=== PATIENT | male | born 1965 | race Caucasian/White ===

== ENCOUNTER 2023-06-22 22:17 | Emergency (ER) | payer OTHER, SELFPAY ==
--- NOTE | ~2023-06-22 | CT_ITS ---
Noncontrast CT scan of the cervical spine Technique: Multiple contiguous axial [address] images of the cervical spine were obtained and rec onstructed in 2D sagittal and coronal planes on the acquisition scanner. Dose reduction technique was used on this scan by utilizing automated exposure control, adjustment of the mA and/or kV according to patient size. The dose-length product (DLP) was 527.77 mGy-cm. Clinical History: Pain Findings: No fractures or dislocations. There is moderate degenerative disc change throughout the ce rvical spine. There is straightening of the normal cervical lordosis. There is bilateral mild neural foraminal narrowing at C2-C3 with mild facet arthropathy, right worse than left. There is bilateral n eural foraminal narrowing at C3-C4, left worse than right. There is right neural foraminal narrowing at C5-C6. There is left neural foraminal narrowing at C6-C7. No prevertebral soft tissue swelling. Impression: No fracture or subluxation of the cervical spine. Degenerative change, as detailed above. Reviewed, dictated and finalized at [facility]. Impression: No fracture or subluxation of the cervical spine. Degenerative change, as detailed above.
--- NOTE | ~2023-06-22 | XR_ITS ---
AP and lateral views of the right tibia/fibula Clinical History: Trauma Findings: No acute fracture or dislocation is seen. Osseous alignment is anatomic. Joint spaces are p reserved without significant erosive or degenerative change. Soft tissues are unremarkable. Impression: Unremarkable right tib-fib radiographs. Reviewed, dictated and finalized at [facility]. Impression: Unremarkable right tib-fib radiographs.
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
[2023-06-22 22:31] VITALS: BP 157/92; PULSE 98; RESP 16; TEMP 36.7; O2SAT 98
[2023-06-23] MEDS: ACETAMINOPHEN 500 MG TABLET 1000 MG PO (01:34)
[2023-06-23] MEDS: CYCLOBENZAPRINE HCL 5 MG TABLET PO (01:35)
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
[2023-06-23] MEDS: KETOROLAC 30 MG/ML VIAL (*BKC) IV PUSH (03:19)
[2023-06-23 04:00] LABS: Estimated CRCL calculation 77 ml/min; Estimated Glomerular Filt Rate > 60
== END 2023-06-23 03:24 | disposition home or self-care (01) ==
PROVIDERS: Emergency Provider Physician Assistant
DX: S16.1XXA Strain of muscle, fascia and tendon at neck level, initial encounter (principal); S20.211A Contusion of right front wall of thorax, initial encounter; V89.2XXA Person injured in unspecified motor-vehicle accident, traffic, initial encounter
CPT/HCPCS: 71260; 72125; 73590; 74177; 96374; 99284; A9270; J1885; Q9967

== ENCOUNTER 2024-10-08 21:58 | Emergency (ER) | payer OTHER, SELFPAY ==
[2024-10-08 21:59] VITALS: BP 136/87; PULSE 95; RESP 20; TEMP 36.7; O2SAT 98
--- OUTSIDE RECORDS SUMMARY | 2024-10-08 22:00 | XMS_ITS | Encounter Summary ---
[facility] Address 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
--- OUTSIDE RECORDS SUMMARY | 2024-10-08 22:00 | XMS_ITS | Encounter Summary ---
Author Organization [facility] Address 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
--- NOTE | 2024-10-08 22:09 | ED.SKABFB ---
HPI - Skin/Abscess/Foreign Bdy General Chief complaint: Skin/Abscess/Foreign Body Stated complaint: swollen face Time Seen by Provider: 10/08/24 22:08 Source: patient Mode of arrival: ambulatory Limitations: no limitations History of Present Illness HPI narrative: patient is a 59-year-old male with a right facial swelling at the parotid gland for the past day. He has no fever or chills. He just has pain and swelling at the right cheek in front of the right ear. MD complaint: other ( Swelling in front of the right ear) Onset (ago): day(s) ( 2) Location: face ( right) Severity: moderate Severity scale (1-10): 4 Quality: aching Pain Consistency: constant Relieving factors: rest Exacerbating factors: palpation and movement Context: other ( patient has right parotid gland swelling starting yesterday with associated pain) Associated symptoms: denies other symptoms Treatments prior to arrival: other ( cold compress did not help) Related Data Allergies Allergy/AdvReac Type Severity Reaction Status Date / Time No Known Allergies Allergy Verified 10/08/24 22:47 Review of Systems Review of Systems: All systems reviewed & are unremarkable except as noted in HPI and below Constitutional: Constitutional: Reports no additional constitutional complaints Eyes: Eyes: Reports no additional eye complaints ENT: Reports system reviewed and no additional complaints, except as documented Cardiovascular: Cardiovascular: Reports no additional cardiovascular complaints Respiratory: Respiratory: Reports no additional respiratory complaints Gastrointestinal: Gastrointestinal: Reports no additional gastrointestinal complaints Genitourinary: Genitourinary: Reports no additional male genitourinary complaints Musculoskeletal: Musculoskeletal: Reports no additional musculoskeletal complaints Integumentary/Breasts: Skin/Breast: Reports system reviewed and no additional complaints, except as docu Neurologic: Reports system reviewed and no additional complaints, except as documented Psychiatric: Psychiatric: Reports no additional psychiatric complaints Endocrine: Endocrine: Reports no additional endocrine complaints Hematologic/Lymphatic: Hematologic/Lymphatic: Reports no additional hematologic/lymphatic complaints Allergic/Immunologic: Allergic/Immunologic: Reports no additional allergic/immunologic complaints Exam Const: General: healthy appearing Nutritional Appearance: well nourished Orientation/consciousness: patient oriented x3 HENMT: Head: normal to inspection Ears: external ears normal Face/Nose/Sinus: Normal external nose present Eyes: Conjunctivae: conjunctivae normal Pupils: Equal, round and reactive pupils present EOM: EOMs intact bilaterally Neck: Neck: normal visual inspection Chest: Chest palpation & inspection: normal inspection of the chest Resp: Effort & Inspection: normal respiratory effort and not labored Auscultation: clear to auscultation bilaterally and no crackles Cardio: Rate: regular rate Rhythm: regular rhythm Heart sounds: no murmurs GI: Inspection: non-distended Auscultation: normal bowel sounds : General: Yes bladder normal to palpation Back/Spine/Pelvis: Back: no CVA tenderness Skin: General skin exam: normal color Rashes: no rashes Wounds: no wounds Other: right cheek anterior to the ear has a moderate size swelling with hardness/induration and tenderness at the site of the parotid gland Neuro: General: patient oriented x3 Cranial nerves: Yes Nystagmus not present Speech: normal speech Extrem: General: normal to inspection Psych: Mental Status: mental status grossly normal Affect: normal affect Attitude: cooperative Course Vital Signs Vital signs: Vital Signs Temperature 36.7 C 10/08/24 21:59 Pulse Rate 95 10/08/24 21:59 Respiratory Rate 20 10/08/24 21:59 Blood Pressure 136/87 10/08/24 21:59 Pulse Oximetry 98 10/08/24 21:59 Oxygen Delivery Room Air 10/08/24 21:59 Temperature 36.7 C 10/08/24 21:59 Pulse Rate 95 10/08/24 21:59 Respiratory Rate 10/08/24 21:59 Blood Pressure 136/87 10/08/24 21:59 Pulse Oximetry 98 10/08/24 21:59 Oxygen Delivery Room Air 10/08/24 21:59 MDM - Skin/Abscess/Foreign Bdy MDM Narrative Medical decision making narrative: patient is a 59-year-old male with a right parotid gland swelling for the past day. Augmentin. Discharge Plan Discharge Clinical Impression: Acute parotitis Patient Disposition: Home Condition: Stable Instructions: Antibiotic Form, Parotid Duct Obstruction (ED) Patient Language: Romanian Prescriptions: New amoxicillin-pot clavulanate 875-125 mg tablet 1 tablet PO BID 10 Days Qty: 20 0RF No Action lidocaine 5 % adhesive patch,medicated 1 patch topical DAILY Qty: 15 0RF Rx Instructions: leave on most painful area for up to 12 hrs cyclobenzaprine 5 mg tablet 5 mg PO TID PRN (Reason: muscle spasm) Qty: 15 0RF Follow-up/Referrals: UNKNOWN,DOCTOR [Non-Staff] Time of Disposition: 22:48
--- OUTSIDE RECORDS SUMMARY | 2024-10-08 22:26 | XMS_ITS | Encounter Summary ---
Author Organization [facility] Address 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
--- OUTSIDE RECORDS SUMMARY | 2024-10-08 22:26 | XMS_ITS | Encounter Summary ---
Author Organization [facility] Address 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
--- NOTE | 2024-10-08 22:37 | PC.NURSE ---
DR COVARRUBIAS AT THE BEDSIDE
== END 2024-10-08 23:05 | disposition home or self-care (01) ==
PROVIDERS: Emergency Provider Emergency Medicine
DX: K11.21 Acute sialoadenitis (principal)
CPT/HCPCS: 99283; A9270